=== PATIENT | female | born 1925 | race Caucasian/White ===

== ENCOUNTER 2016-07-24 21:26 | Emergency (ER) | payer MEDICARE, OTHER ==
[2016-07-24 22:59] LABS: Hematocrit 35 % (35-47); Hemoglobin 11.9 g/dl (12.0-16.0); Mean Corpuscular HGB Conc 34 g/dl (31-36); Mean Corpuscular Hemoglobin 31 pg (27-31); Mean Corpuscular Volume 93 fL (80-97); Red Blood Count 3.82 10^6/ul (4.0-5.4); Red Cell Distribution Width 15 % (10.5-15); White Blood Count 9.9 10^3/ul (3.5-10.8)
[2016-07-24 23:08] LABS: Add Diff/Slide Review? Slide Review Added; Comments Flag Yes
[2016-07-24 23:13] LABS: BUN/Creatinine Ratio 21.8 (8-20); Calcium 9.8 mg/dL (8.6-10.3); EGFR African American 78.8 (>60); EGFR Non-African American 61.3 (>60); Potassium 3.9 mmol/L (3.5-5.0)
--- NOTE | 2016-07-24 23:42 | ED ---
Niko Martinez Adam, scribed for William Martel MD on 07/24/16 at 2227 . HPI Diabetic - HPI Summary HPI Summary: Pt is an 89 year old diabetic female who accidentally took NovoLog instead of Lantus before bed tonight. She states that she normally takes 20 units of Lantus before bed but tonight she accidentally took 20 units of NovoLog. Normally she only takes NovoLog when her sugar levels are high and she usually only takes approximately 2 units. 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 Former tobacco use. - History Of Current Complaint Chief Complaint: EDDiabeticProb Time Seen by Provider: 07/24/16 22:19 Hx Obtained From: Patient Onset/Duration: Sudden Onset, Lasting Hours, Still Present Timing: Constant Severity Initially: Mild Severity Currently: Mild Character: Alert Aggravating: Medication Change - Accidental Alleviating: Nothing Associated Signs & Symptoms: Negative Related History: DM II - Allergies/Home Medications Allergies/Adverse Reactions: Allergies Allergy/AdvReac Type Severity Reaction Status Date / Time Aliskiren [From Tekturna] Allergy Unknown UNK Verified 11/18/15 00:12 Felodipine Allergy Unknown Swelling Verified 11/18/15 00:12 Gabapentin [From Neurontin] Allergy Unknown See Comment Verified 11/18/15 00:12 Timolol Allergy Pain Verified 11/18/15 00:12 PMH/Surg Hx/FS Hx/Imm Hx Endocrine/Hematology History: Reports: Hx Anticoagulant Therapy - ON ELIQUIS BID , Hx Diabetes - TYPE 2, Other Endocrine/Hematological Disorders - History DVT Cardiovascular History: Reports: Hx Hypercholesterolemia - HYPERLIPIDEMIA, Hx Hypertension, 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, Other Cardiovascular Problems/Disorders - LYMPHEDEMA Musculoskeletal History: Reports: Hx Arthritis - RA, Hx Orthopedic Injury - RLE FX/NWB & PAIN IN LIMB, Hx Osteoporosis - BONE & CARTILAGE DISORDER Denies: Hx Rheumatoid Arthritis Sensory History: Reports: Hx Contacts or Glasses Denies: Hx Cataracts, Hx Eye Injury, Hx Eye Prosthesis, Hx Glaucoma, Hx Legally Blind, Hx Macular Degeneration, Hx Vision Problem, Hx Deafness, Hx Hearing Aid, Hx Hearing Problem, Other Sensory Impairments Opthamlomology History: Reports: Hx Contacts or Glasses Denies: Hx Cataracts, Hx Eye Injury, Hx Eye Prosthesis, Hx Glaucoma, Hx Legally Blind, Hx Macular Degeneration, Hx Vision Problem, Other Sensory Impairments - Surgical History Surgery Procedure, Year, and Place: RIGHT TOTAL KNEE REPLACEMENT 2011 - Immunization History Date of Tetanus Vaccine: "up to date" Date of Influenza Vaccine: current season Infectious Disease History: No Infectious Disease History: Denies: Traveled Outside the [place] in Last 30 Days - Family History Known Family History: Positive: Diabetes - Mother - Social History Occupation: Retired Lives: With Family - Son Alcohol Use: None Hx Substance Use: No Substance Use Type: Reports: None Hx Tobacco Use: Yes Smoking Status (MU): Former Smoker Review of Systems Constitutional: Negative Negative: Fever Genitourinary: Negative Musculoskeletal: Negative Neurological: Negative Psychological: Normal All Other Systems Reviewed And Are Negative: Yes Physical Exam Triage Information Reviewed: Yes Vital Signs On Initial Exam: Initial Vitals Temp Pulse Resp BP Pulse Ox 98.6 F 80 16 116/99 100 07/24/16 21:29 07/24/16 21:29 07/24/16 21:29 07/24/16 21:29 07/24/16 21:29 Vital Signs Reviewed: Yes Appearance: Positive: Well-Appearing, No Pain Distress Skin: Positive: Warm Head/Face: Positive: Normal Head/Face Inspection Eyes: Positive: GRICELDA ENT: Positive: Hearing grossly normal Neck: Positive: Supple Respiratory/Lung Sounds: Positive: Breath Sounds Present Cardiovascular: Positive: RRR Abdomen Description: Positive: Nontender, Soft Bowel Sounds: Positive: Present Musculoskeletal: Positive: Strength/ROM Intact Neurological: Positive: Sensory/Motor Intact, Alert, Oriented to Person Place, Time Psychiatric: Positive: Affect/Mood Appropriate Diagnostics - Vital Signs Vital Signs Temp Pulse Resp BP Pulse Ox 07/24/16 21:29 98.6 F 80 16 116/99 100 - Laboratory Lab Results: Lab Results 07/24/16 07/24/16 Range/Units 21:41 22:14 POC Glucose (mg/dL) 125 H 98 (74-106) mg/dL Result Diagrams: 07/24/16 22:50 07/24/16 22:50 Lab Statement: Any lab studies that have been ordered have been reviewed, and results considered in the medical decision making process. - Additional Comments Diagnostic Additional Comments: POC Glucose - 125 (21:41), 98 (22:14) Re-Evaluation - Re-Evaluation First Eval Change: Improved Diabetic Course/Dx - Diagnoses Provider Diagnoses: Hypoglycemia, Insulin reaction Discharge - Discharge Plan Condition: Stable Disposition: HOME Patient Education Materials: Diabetic Hypoglycemia (ED) Referrals: Tomas Anderson MD [Primary Care Provider] - Additional Instructions: Follow up with Dr. Anderson. The documentation as recorded by the Niko sanders Adam accurately reflects the service I personally performed and the decisions made by me, William Martel MD.
[2016-07-25 01:24] VITALS: BP 118/57
== END 2016-07-25 01:23 | disposition home or self-care (01) ==
LOC: ED 21:26
DX: E11.649 Type 2 diabetes mellitus with hypoglycemia without coma (principal)
CPT/HCPCS: 36415; 80048; 85025; 99282